=== PATIENT | female | born 1975 | race Caucasian/White ===

== ENCOUNTER → 2019-08-11 | Outpatient (CLI) | payer OTHER | LOC: M.RAD 09:50 | DX: Z12.31 Encounter for screening mammogram for malignant neoplasm of breast (principal) ==

== ENCOUNTER → 2019-12-01 | Outpatient (CLI) | payer OTHER | LOC: M.LAB 15:50 | DX: E87.6 Hypokalemia (principal) ==

== ENCOUNTER → 2019-12-25 | Outpatient (CLI) | payer OTHER | LOC: M.LAB 17:05 | DX: E87.6 Hypokalemia (principal) ==

== ENCOUNTER → 2020-01-05 | Outpatient (CLI) | payer OTHER | LOC: M.LAB 15:40 | DX: E87.6 Hypokalemia (principal) ==

== ENCOUNTER → 2020-02-16 | Outpatient (CLI) | payer OTHER | LOC: M.LAB 11:59 | DX: E87.6 Hypokalemia (principal) ==

== ENCOUNTER 2020-02-25 17:04 | Emergency (ER) | payer OTHER ==
[~2020-02-25] VITALS: Ht 162.6 cm; Wt 68.0 kg
[2020-02-25 17:15] VITALS: BP 125/64
[2020-02-25 17:42] LABS: INFLUENZA A ANTIGEN Negative (Negative); INFLUENZA B ANTIGEN Negative (Negative)
[2020-02-25] MEDS ORDERED: ZPAK PO (17:47)
[2020-02-25] MEDS ORDERED: ZINC SULFATE220 MG PO (18:19)
== END 2020-02-25 18:27 | disposition home or self-care (01) ==
LOC: M.ERS 17:04
PROVIDERS: Family Medicine
DX: U07.1 COVID-19 (principal); J22 Unspecified acute lower respiratory infection; R68.89 Other general symptoms and signs; F17.210 Nicotine dependence, cigarettes, uncomplicated; Z90.49 Acquired absence of other specified parts of digestive tract; Z88.5 Allergy status to narcotic agent; Z88.6 Allergy status to analgesic agent

== ENCOUNTER → 2020-03-12 | Outpatient (CLI) | payer OTHER ==
[~2020-03-12] MED LIST: ZINC SULFATE220 MG PO; ZPAK PO
[2020-03-12 08:59] LABS: POTASSIUM 3.1 mmol/L (3.5-5.1)
== END ==
LOC: M.LAB 07:26
PROVIDERS: Family Medicine
DX: E87.6 Hypokalemia (principal)

== ENCOUNTER → 2020-03-22 | Outpatient (CLI) | payer OTHER | LOC: M.LAB 12:02 | DX: E87.5 Hyperkalemia (principal) ==